=== PATIENT | female | born 1985 | race African-American/Black ===

== ENCOUNTER 2020-01-08 04:04 | Emergency (ER) | payer MEDICAID ==
[~2020-01-08] VITALS: Ht 165.1 cm; Wt 84.0 kg
[2020-01-08 04:19] VITALS: BP 141/92
[2020-01-08] MEDS ORDERED: BACITRACIN ZINC OINT UDPKT TOP ONE (04:30)
[2020-01-08] MEDS ORDERED: CEPHALEXIN 250MG CAPSULE PO ONE (04:30)
== END 2020-01-08 05:21 | disposition home or self-care (01) ==
LOC: ER 04:04
DX: S61.211A Laceration without foreign body of left index finger without damage to nail, initial encounter (principal); X58.XXXA Exposure to other specified factors, initial encounter; Y93.89 Activity, other specified; Y92.89 Other specified places as the place of occurrence of the external cause; Y99.8 Other external cause status
CPT/HCPCS: 99283

== ENCOUNTER 2020-05-01 19:31 | Emergency (ER) | payer MEDICAID ==
[~2020-05-01] VITALS: Ht 167.6 cm; Wt 77.0 kg
[2020-05-01] MEDS ORDERED: DIPHENHYDRAMINE 50MG/ML VIAL IV ONE (20:15)
[2020-05-01] MEDS ORDERED: METOCLOPRAMIDE HCL 10MG/2ML VIAL IV ONE (20:15)
[2020-05-01] MEDS ORDERED: SODIUM CHLORIDE 0.9% 500 ML IV ONE (20:15)
[2020-05-01 21:04] LABS: BASOPHILS % 0.6 % (0.0-2.0); EOSINOPHILS % 0.2 % (0.0-5.0); HEMATOCRIT. 39.5 % (36.0-48.0); HEMOGLOBIN. 13.4 g/dL (12.0-16.0); LYMPHOCYTES % 12.9 % (20.0-50.0); MEAN CORPUSCULAR HEMOGLOBIN 27.9 pg (28.0-32.0); MEAN CORPUSCULAR VOLUME 82.2 fL (81.0-99.0); MEAN PLATELET VOLUME 8.5 fl (7.4-10.4); NEUTROPHILS % 80.3 % (40.0-76.0); PLATELET 304 x1000/uL (130-400); RED BLOOD CELL COUNT 4.81 mill/uL (4.2-5.4); RED CELL DISTRIBUTION WIDTH 11.9 % (11.6-14.6)
[2020-05-01 21:08] LABS: CHLORIDE 99 mEq/L (98-107)
[2020-05-01 21:29] LABS: HCG SCREEN NEGATIVE
[2020-05-02] MEDS ORDERED: FUROSEMIDE 40MG TABLET PO NR (01:30)
[2020-05-02 02:00] VITALS: BP 144/72
== END 2020-05-02 02:00 | disposition home or self-care (01) ==
LOC: ER 19:31
DX: R51.9 Headache, unspecified (principal); E11.65 Type 2 diabetes mellitus with hyperglycemia; Z79.84 Long term (current) use of oral hypoglycemic drugs; Z86.73 Personal history of transient ischemic attack (TIA), and cerebral infarction without residual deficits; H53.8 Other visual disturbances
CPT/HCPCS: 36415; 70450; 80053; 82962; 84703; 85025; 93005; 96361; 96374; 96375; 99285; J1200; J2765; J7040